=== PATIENT | female | born 1960 | race Caucasian/White ===

== ENCOUNTER 2017-05-17 07:22 | Day surgery (SDC) | payer OTHER ==
[~2017-05-17] VITALS: Ht 170.2 cm; Wt 122.8 kg
[~2017-05-17 07:22] MED LIST: ABILIFY2 MG PO; ABILIFY5 MG PO; ALPRAZOLAM0.25 M2 PO; AMITIZA24 MICROGR PO; AMITRIPTYLINE H25 MG; AMITRIPTYLINE H25 MG PO; AMLODIPINE BESY10 MG PO; APRESOLINE25 MG PO; APRESOLINE50 MG PO; ASPIR 8181 M1 PO; ASPIRIN E.C.81 M1 PO; ASPIRIN EC325 MG PO; ASPIRIN81 M1 PO; CARVEDILOL25 MG PO; CEFDINIR300 MG PO; CLARITHROMYCIN500 M1; CLEOCIN150 MG PO; CLOPIDOGREL75 MG PO; CLOTRIM ANTIFUN15 GM TP; COLACE100 MG PO; COREG12.5 M1 PO; COREG25 M1 PO; CRESTOR20 MG; CRESTOR20 MG PO; CYMBALTA60 MG PO; DAILY VALUE1 EACH PO; DEMADEX20 MG PO; DESYREL100 MG; DESYREL100 MG PO; DILTIAZEM 24HR240 MG PO; DULERA 100 MCG/13 GM IH; DULOXETINE HCL60 MG PO; DUONEB 2.5-0.5 M3 ML AEROSOL; EDARBI40 MG PO; ELAVIL10 MG PO; ELAVIL25 MG PO; ENDOCET 7.5-501 EACH; ERGOCALCIF50000 UNIT PO; FA-80.8 MG PO; FERROUS SULFAT325 MG PO; FOLIC ACID1 MG PO; FUROSEMIDE20 MG PO; FUROSEMIDE40 MG PO; Flonase BOTH NARES; HUMULIN R500 UNITS/; HUMULIN R500 UNITS/ SC; HYDRALAZINE HCL10 MG PO; INSULIN PUMP SCCONT; LASIX40 MG PO; LASIX80 MG PO; LEVEMIR FL100 UNIT/1 SC; LEVEMIR FL100 UNITS/ SC; LEVEMIR100 UNIT/2 SC; LIPITOR40 MG PO; LISINOPRIL-HCT1 EAC3; LISINOPRIL-HCT1 EACH PO; LOVAZA1 GM; LOVAZA1 GM PO; Levaquin PO; METOCLOPRAMIDE 10 MG; METOLAZONE2.5 MG PO; MIRENA52 MG IY; NASONEX17 GM; NASONEX17 GM NS; NEPHRO-VITE,1 TABLET PO; NOVOLOG 10100 UNITS/ SC; NOVOLOG PE100 UNITS/; NOVOLOG PE100 UNITS/ SC; NOVOLOG100 UNIT/1 SC; NOVOLOG100 UNIT/1 SQ; OXYCODONE HCL20 M1 PO; OXYCODONE HCL30 MG PO; OXYCODONE HCL5 MG PO; PERCOCET 7.51 TABLE1; PERCOCET 7.51 TABLET PO; PLAVIX75 MG PO; POLYETHYLENE GL17 GM PO; PREDNISONE10 MG PO; PREDNISONE20 MG PO; PRINIVIL5 MG PO; PRISTIQ50 MG PO; PROCRIT10000 UNI1 SC; PROCRIT40000 UNI1 SC; PROVENTIL,2.5 MG/0.5 AEROSOL; REGLAN10 MG PO; RENA-VITE RX T1 EACH PO; RENVELA800 MG PO; SENNA8.6 MG PO; SIMVASTATIN40 M1 PO; SPIRIVA RESPIMAT4 G1 IH; STIOLTO RESPIMAT4 GM IH; SYMBICORT60 INHALAT IH; SYMLIN SC; SYMLINPEN2700 MCG/2; Singulair PO; Symbicort 160-4.5 mc IH; TAZTIA XT240 M1 PO; TRAZODONE HCL50 MG PO; TYLENOL REGULA325 MG PO; XANAX0.5 MG PO; Xanax PO; ZESTORETIC,P1 TABLE1 PO; ZESTRIL,PRINIVI40 M1 PO; ZOCOR40 MG PO
[2017-05-17 08:23] LABS: POINT-OF-CARE METER ID UU13113696; POINT-OF-CARE USER ID HMLCJM07
[2017-05-17 09:39] LABS: METH RESISTANT S AUREUS PCR NEGATIVE (NEGATIVE)
[2017-05-17 09:44] LABS: PROBE CHECK PASS; SPECIMEN PROCESSING CONTROL PASS
== END 2017-05-17 10:45 | disposition home or self-care (01) ==
LOC: CATH 07:22
PROVIDERS: Surgery
DX: T82.858A Stenosis of other vascular prosthetic devices, implants and grafts, initial encounter (principal); I12.0 Hypertensive chronic kidney disease with stage 5 chronic kidney disease or end stage renal disease; E11.22 Type 2 diabetes mellitus with diabetic chronic kidney disease; N18.6 End stage renal disease; Z99.2 Dependence on renal dialysis; E78.5 Hyperlipidemia, unspecified; J44.9 Chronic obstructive pulmonary disease, unspecified; J45.909 Unspecified asthma, uncomplicated; M19.90 Unspecified osteoarthritis, unspecified site; I25.10 Atherosclerotic heart disease of native coronary artery without angina pectoris; Z95.1 Presence of aortocoronary bypass graft; Z88.1 Allergy status to other antibiotic agents; Z88.0 Allergy status to penicillin; Z87.891 Personal history of nicotine dependence
CPT/HCPCS: 82948; 87641; C1725; C1769; C1894; J1644; J2250; J3010; S0020

== ENCOUNTER → 2017-12-04 | Outpatient (CLI) | payer MEDICARE, OTHER | END | disposition home or self-care (01) | LOC: CDC 10:51 | DX: Z01.810 Encounter for preprocedural cardiovascular examination (principal) | CPT/HCPCS: 93000 ==

== ENCOUNTER 2017-12-12 13:26 | Day surgery (SDC) | payer OTHER ==
[~2017-12-12] VITALS: Ht 170.2 cm; Wt 125.1 kg
[~2017-12-12 13:26] MED LIST changes: +IMDUR30 MG PO; +OXYCODONE HCL E20 MG PO; +OXYCODONE HCL10 MG PO; -OXYCODONE HCL30 MG PO; +SENSIPAR30 MG PO; +T:SLIM1 EACH MC
[2017-12-12 14:34] VITALS: BP 171/84
[2017-12-12 18:45] VITALS: BP 158/70
[2017-12-12 19:51] VITALS: BP 151/68
== END 2017-12-12 20:28 | disposition home or self-care (01) ==
LOC: SDC 13:26
PROVIDERS: Orthopaedic Surgery Hand Surgery
DX: M18.9 Osteoarthritis of first carpometacarpal joint, unspecified (principal); G56.21 Lesion of ulnar nerve, right upper limb; I12.0 Hypertensive chronic kidney disease with stage 5 chronic kidney disease or end stage renal disease; E11.22 Type 2 diabetes mellitus with diabetic chronic kidney disease; J44.9 Chronic obstructive pulmonary disease, unspecified; N18.6 End stage renal disease; Z99.2 Dependence on renal dialysis; Z87.891 Personal history of nicotine dependence; Z79.4 Long term (current) use of insulin; Z96.41 Presence of insulin pump (external) (internal); Z79.02 Long term (current) use of antithrombotics/antiplatelets; Z79.82 Long term (current) use of aspirin; Z95.5 Presence of coronary angioplasty implant and graft; Z86.73 Personal history of transient ischemic attack (TIA), and cerebral infarction without residual deficits; Z79.891 Long term (current) use of opiate analgesic
CPT/HCPCS: 82948; 87641; C1769; J1170; J2405; J3010; S0020

== ENCOUNTER 2017-12-21 16:02 | Emergency (ER) | payer OTHER ==
[~2017-12-21] VITALS: Ht 170.2 cm; Wt 122.2 kg
[2017-12-21 20:57] LABS: APPEARANCE SL.HAZY ((CLEAR)); BILIRUBIN NEGATIVE; BLOOD NEGATIVE; COLOR YELLOW ((YELLOW)); GLUCOSE (STRIP) 50; KETONES NEGATIVE; LEUKOCYTES TRACE; NITRITE NEGATIVE; PROTEIN (STRIP) >=500; SPECIFIC GRAVITY 1.015 (1.000-1.030); UROBILINOGEN 0.2 MG/DL (0.2-1.0)
[2017-12-21 21:09] LABS: BACTERIA RARE /HPF; EPITHELIAL CELLS 2+ /HPF; MUCUS TRACE /LPF; RED BLOOD CELLS 0-5 /HPF (0-5); UCUL ADDED? YES
[2017-12-21 22:25] VITALS: BP 142/74
== END 2017-12-21 22:25 | disposition home or self-care (01) ==
LOC: EME 16:02
PROVIDERS: Nurse Practitioner Family
DX: M25.551 Pain in right hip (principal); G89.29 Other chronic pain; I50.9 Heart failure, unspecified; E11.40 Type 2 diabetes mellitus with diabetic neuropathy, unspecified; J44.9 Chronic obstructive pulmonary disease, unspecified; K21.9 Gastro-esophageal reflux disease without esophagitis; Z90.49 Acquired absence of other specified parts of digestive tract; Z87.891 Personal history of nicotine dependence; Z96.41 Presence of insulin pump (external) (internal); Z88.0 Allergy status to penicillin; Z88.1 Allergy status to other antibiotic agents
CPT/HCPCS: 81003; 82948; 87086 GA; 99281; 99284; J3010

== ENCOUNTER 2018-01-27 20:10 | Inpatient (IN) | payer OTHER ==
[~2018-01-27] VITALS: Ht 170.2 cm; Wt 136.7 kg
[2018-01-27 21:22] LABS: HEMATOCRIT 32.7 % (36.0-46.0); HEMOGLOBIN 10.6 G/DL (11.9-15.5); MCH 31.3 PG (29.0-34.0); MCHC 32.4 G/DL (30.0-36.0); MCV 96.5 FL (83-99); PLATELET COUNT 205 K/uL (156-360); RBC DIS.WIDTH-SD 55.6 % (39-53); RED BLOOD COUNT 3.39 M/uL (3.80-5.20)
[2018-01-27 21:32] LABS: CHLORIDE 97 mEq/L (99-109); SODIUM 136 mEq/L (136-147)
[2018-01-27 21:33] LABS: GLUCOSE 130 mg/dL (70-99)
[2018-01-27 21:37] LABS: CREATININE 5.5 mg/dL (0.6-1.3); GFR ESTIMATE (CALCULATED) 8 mL/min/
[2018-01-27 21:38] LABS: UREA NITROGEN (BUN) 84 mg/dL (9-23)
[2018-01-27] MEDS ORDERED: VYVANSE60 MG PO (23:34)
[2018-01-28 01:34] VITALS: BP 142/83
[2018-01-28 07:54] VITALS: BP 139/73
[2018-01-28 12:58] LABS: HEMATOCRIT 37.8 % (36.0-46.0); HEMOGLOBIN 11.9 G/DL (11.9-15.5); MCH 30.5 PG (29.0-34.0); MCHC 31.5 G/DL (30.0-36.0); MCV 96.9 FL (83-99); PLATELET COUNT 146 K/uL (156-360); RBC DIS.WIDTH-CV 16.1 % (11.8-14.6); RBC DIS.WIDTH-SD 57.1 % (39-53); WHITE BLOOD COUNT 11.3 K/uL (4.1-10.2)
[2018-01-28 13:29] LABS: HEPATITIS B SURFACE ANTIGEN Nonreactive
[2018-01-28 14:57] LABS: ALBUMIN 3.8 G/DL (3.2-4.8); CHLORIDE 97 MEQ/L (99-109); CREATININE 5.3 MG/DL (0.6-1.3); GFR ESTIMATE (CALCULATED) 9 mL/min/; PHOSPHORUS 5.6 mg/dL (2.5-4.9); POTASSIUM 5.3 MEQ/L (3.7-5.4); SODIUM 131 MEQ/L (136-147); UREA NITROGEN (BUN) 93 mg/dL (9-23)
[2018-01-28 14:58] LABS: GLUCOSE 207 mg/dL (70-99)
[2018-01-28 17:07] VITALS: BP 128/66
[2018-01-29 00:21] VITALS: BP 141/73
[2018-01-29 06:37] LABS: BASOPHIL (%) 0.1 % (0-1); EOSINOPHIL (%) 0 % (0-5); HEMATOCRIT 32.2 % (36.0-46.0); IMMATURE GRANULOCYTE (%) 1.6 % (0.0-0.7); LYMPHOCYTE (%) 4.7 % (15-42); LYMPHOCYTE COUNT 0.4 K/uL (1.0-2.8); MCH 29.9 PG (29.0-34.0); MCHC 31.1 G/DL (30.0-36.0); MCV 96.4 FL (83-99); MONOCYTE (%) 3.5 % (3-12); MONOCYTE COUNT 0.3 K/uL (0-0.8); NEUTROPHIL (%) 90.1 % (45-76); NEUTROPHIL COUNT 8.4 K/uL (1.8-6.4); PLATELET COUNT 182 K/uL (156-360); RBC DIS.WIDTH-SD 55.8 % (39-53); RED BLOOD COUNT 3.34 M/uL (3.80-5.20); WHITE BLOOD COUNT 9.3 K/uL (4.1-10.2)
[2018-01-29 06:44] VITALS: BP 136/77
[2018-01-29 07:02] LABS: ALBUMIN 3.9 G/DL (3.2-4.8); CHLORIDE 92 MEQ/L (99-109); GLUCOSE 290 mg/dL (70-99); PHOSPHORUS 4.6 mg/dL (2.5-4.9); POTASSIUM 4.6 MEQ/L (3.7-5.4); SODIUM 137 MEQ/L (136-147); UREA NITROGEN (BUN) 53 mg/dL (9-23)
[2018-01-29 07:03] LABS: CREATININE 3.7 MG/DL (0.6-1.3); GFR ESTIMATE (CALCULATED) 13 mL/min/
[2018-01-29 15:24] VITALS: BP 151/70
[2018-01-29 23:50] VITALS: BP 135/77
[2018-01-30 05:22] VITALS: BP 150/96
[2018-01-30 07:27] VITALS: BP 152/69
[2018-01-30 08:30] LABS: BASOPHIL (%) 0.1 % (0-1); EOSINOPHIL (%) 0 % (0-5); HEMATOCRIT 30.9 % (36.0-46.0); HEMOGLOBIN 9.8 G/DL (11.9-15.5); IMMATURE GRANULOCYTE (%) 1.3 % (0.0-0.7); LYMPHOCYTE (%) 3.9 % (15-42); LYMPHOCYTE COUNT 0.5 K/uL (1.0-2.8); MCH 30.4 PG (29.0-34.0); MCHC 31.7 G/DL (30.0-36.0); MONOCYTE (%) 2.9 % (3-12); MONOCYTE COUNT 0.4 K/uL (0-0.8); NEUTROPHIL (%) 91.8 % (45-76); NEUTROPHIL COUNT 11.1 K/uL (1.8-6.4); PLATELET COUNT 183 K/uL (156-360); RBC DIS.WIDTH-CV 15.4 % (11.8-14.6); RBC DIS.WIDTH-SD 53.4 % (39-53); RED BLOOD COUNT 3.22 M/uL (3.80-5.20); WHITE BLOOD COUNT 12.1 K/uL (4.1-10.2)
[2018-01-30 09:01] LABS: ALBUMIN 3.6 G/DL (3.2-4.8); CHLORIDE 95 MEQ/L (99-109); POTASSIUM 4.6 MEQ/L (3.7-5.4); SODIUM 135 MEQ/L (136-147)
[2018-01-30 09:13] LABS: GFR ESTIMATE (CALCULATED) 10 mL/min/; GLUCOSE 204 mg/dL (70-99); PHOSPHORUS 5.2 mg/dL (2.5-4.9)
[2018-01-30 09:19] LABS: CREATININE 4.6 MG/DL (0.6-1.3); UREA NITROGEN (BUN) 89 mg/dL (9-23)
[2018-01-30] MEDS ORDERED: LEVAQUIN250 MG PO (15:36)
[2018-01-30 16:14] VITALS: BP 138/72
== END 2018-01-30 16:40 | disposition home or self-care (01) | DRG 291 ==
LOC: EME 20:10 → EDOF 23:26 → 5EAST 23:26 → ENRESERV 23:27 → 5EAST 23:58
PROVIDERS: Internal Medicine; Internal Medicine Nephrology; Nurse Practitioner Family
PROC: 5A1D70Z Performance of Urinary Filtration, Intermittent, Less than 6 Hours Per Day (ICD-10-PCS; principal; 2018-01-28)
PROC: 5A1D70Z Performance of Urinary Filtration, Intermittent, Less than 6 Hours Per Day (ICD-10-PCS; 2018-01-30)
DX: I13.2 Hypertensive heart and chronic kidney disease with heart failure and with stage 5 chronic kidney disease, or end stage renal disease (principal); I50.9 Heart failure, unspecified; J18.9 Pneumonia, unspecified organism; N18.6 End stage renal disease; J44.0 Chronic obstructive pulmonary disease with (acute) lower respiratory infection; R09.02 Hypoxemia; D72.829 Elevated white blood cell count, unspecified; Z96.41 Presence of insulin pump (external) (internal); E66.9 Obesity, unspecified; D63.1 Anemia in chronic kidney disease; I25.10 Atherosclerotic heart disease of native coronary artery without angina pectoris; E78.5 Hyperlipidemia, unspecified; E87.1 Hypo-osmolality and hyponatremia; M19.90 Unspecified osteoarthritis, unspecified site; F41.9 Anxiety disorder, unspecified; F32.9 Major depressive disorder, single episode, unspecified; G89.4 Chronic pain syndrome; Z95.5 Presence of coronary angioplasty implant and graft; Z79.899 Other long term (current) drug therapy; Z79.4 Long term (current) use of insulin; F17.210 Nicotine dependence, cigarettes, uncomplicated; E11.22 Type 2 diabetes mellitus with diabetic chronic kidney disease; Z90.49 Acquired absence of other specified parts of digestive tract; Z99.2 Dependence on renal dialysis; Z68.41 Body mass index [BMI] 40.0-44.9, adult
CPT/HCPCS: 71046; 71250; 80048; 80069; 82948; 85025; 85027; 87340; 93005; 94640; 94640 76; 94799; 99202; J1644; J1815; J1956; J2930; J7030; J7644